=== PATIENT | male | born 1970 | race Caucasian/White ===

== ENCOUNTER 2021-12-19 12:04 | Outpatient (CLI) | payer OTHER | END 2021-12-19 12:05 | disposition home or self-care (01) | LOC: NAV RAD 12:04 | PROVIDERS: ATTEND Family Medicine | DX: M06.9 Rheumatoid arthritis, unspecified (principal); M47.816 Spondylosis without myelopathy or radiculopathy, lumbar region; M51.36 Other intervertebral disc degeneration, lumbar region; M51.35 Other intervertebral disc degeneration, thoracolumbar region | CPT/HCPCS: 72100 ==